=== PATIENT | female | born 1960 | race American Indian/Alaskan Native ===

== ENCOUNTER 2017-08-22 23:56 | Emergency (ER) | payer BC ==
[2017-08-22 23:56] VITALS: BMI 29.6
[2017-08-23 00:09] VITALS: O2SAT 98
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
--- NOTE | 2017-08-23 01:12 | CT ---
EXAM: CT Head Without Intravenous Contrast CLINICAL HISTORY: 57 years old, female; Pain; Headache; Additional info: Injury TECHNIQUE: Axial computed tomography images of the head/brain without intravenous contrast. All CT scans at this facility use one or more dose reduction techniques, viz.: automated exposure control; ma/kV adjustment per patient size (including targeted exams where dose is matched to indication; i.e. head); or iterative reconstruction technique. Coronal and sagittal reformatted images were created and reviewed. COMPARISON: No relevant prior studies available. FINDINGS: Brain: Minimal atrophy. No intracranial hemorrhage. No mass. No edema. Ventricles: No hydrocephalus. Bones/joints: No acute fracture. Soft tissues: Small parotid calcification. LEFT parietal soft tissue swelling. Sinuses: No acute sinusitis. Mastoid air cells: No mastoid effusion. Orbits: Unremarkable as visualized. IMPRESSION: 1. No intracranial hemorrhage. 2. Incidental/non-acute findings are described above.
--- NOTE | 2017-08-23 01:15 | CT ---
EXAM: CT Cervical Spine Without Intravenous Contrast CLINICAL HISTORY: 57 years old, female; Pain; Neck pain; Additional info: Injury TECHNIQUE: Axial computed tomography images of the cervical spine without intravenous contrast. All CT scans at this facility use one or more dose reduction techniques, viz.: automated exposure control; ma/kV adjustment per patient size (including targeted exams where dose is matched to indication; i.e. head); or iterative reconstruction technique. Coronal and sagittal reformatted images were created and reviewed. COMPARISON: No relevant prior studies available. FINDINGS: Vertebrae: No acute fracture. Mild facet osteoarthrosis. Discs/spinal canal/neural foramina: Early degenerative disc disease within mid cervical spine. Severe degenerative disc disease within lower cervical spine. Mild indentation thecal sac/cord lower cervical spine. Neuroforaminal narrowing within lower cervical spine. Soft tissues: Unremarkable. Sinuses: Minimal mucosal thickening of right maxillary sinus. Submandibular/parotid glands: Small parotid calcification. Lung apices: Early emphysematous changes. IMPRESSION: 1. No fracture. 2. Incidental/non-acute findings are described above.
[2017-08-23 01:29] VITALS: BP 161/80; PULSE 82; RESP 20; TEMP 98.4
== END 2017-08-23 01:29 | disposition home or self-care (01) ==
LOC: C.ER 23:56
DX: S00.93XA Contusion of unspecified part of head, initial encounter (principal); S16.1XXA Strain of muscle, fascia and tendon at neck level, initial encounter; Y08.89XA Assault by other specified means, initial encounter

== ENCOUNTER 2018-09-14 12:13 | Emergency (ER) | payer BC ==
[2018-09-14 12:13] VITALS: BMI 29.6
[2018-09-14 12:37] VITALS: BP 151/78; PULSE 63; RESP 18; TEMP 99.1; O2SAT 99
[2018-09-14] MEDS ORDERED: Amoxicillin-Clav 875-125 mg Tab PO STA (13:38)
[2018-09-14] MEDS ORDERED: Amoxicillin-Clav 875-125 mg Tab PO ONE (13:49)
--- NOTE | 2018-09-14 14:01 | C.PDOC ---
History Of Present Illness 58 y/o female with a PMHx of diabetes presents to the ED complaining of pain to her right thumb for 4 days. States she initially noticed pain underneath her acrylic nails which has progressively worsened. She had them removed two days ago. Patient then noticed a [id number] spot on her right thumb nail. States the spot is growing in size, and the tip of her finger is increasingly painful, rated 6/10 pain. Patient has not taken any medication for pain control. Notes she has had previous infections in the past, requiring I&D. Otherwise she denies any fever, chills, nausea, vomiting, rash, or trauma. Time Seen by Provider: 09/14/18 13:31 Chief Complaint (Nursing): Finger,Hand,&Wrist History Per: Patient History/Exam Limitations: no limitations Onset/Duration Of Symptoms: Days Current Symptoms Are (Timing): Still Present Severity: Moderate Pain Scale Rating Of: 6 Past Medical History Reviewed: Historical Data, Nursing Documentation, Vital Signs Vital Signs: Last Vital Signs Temp 99.1 F 09/14/18 12:33 Pulse 63 09/14/18 12:33 Resp 18 09/14/18 12:33 BP 151/78 H 09/14/18 12:33 Pulse Ox 99 09/14/18 12:33 - Medical History PMH: Diabetes, HTN, Hypercholesterolemia - [facility] Procedures PERCUTAN NEEDLE BIOPSY OF BREAST (11/09/13) Family History: States: Unknown Family Hx - Social History Hx Tobacco Use: No Hx Alcohol Use: No Hx Substance Use: No - Immunization History Hx Tetanus Toxoid Vaccination: No Hx Influenza Vaccination: No Hx Pneumococcal Vaccination: No Review Of Systems Constitutional: Negative for: Fever, Chills Gastrointestinal: Negative for: Nausea, Vomiting Musculoskeletal: Positive for: Hand Pain (right 1st digit) Skin: Negative for: Rash, Other (discharge) Neurological: Negative for: Weakness, Numbness Physical Exam - Physical Exam Appears: Non-toxic, No Acute Distress Skin: Warm, Dry Head: Atraumatic, Normacephalic Eye(s): bilateral: Normal Inspection Neck: Normal ROM Chest: Symmetrical Respiratory: No Accessory Muscle Use, Other (No respiratory distress) Extremity: Tenderness (to palpation at distal right 1st digit and nail), No Deformity, No Swelling, Other (White-enio green-enio pigment to medial nail of right 1st digit; slight erythema surrounding, but no erythema at the nailbed, no evidence of pus, no fluctuance) Pulses: Left Radial: Normal, Right Radial: Normal Neurological/Psych: Oriented x3 ED Course And Treatment O2 Sat by Pulse Oximetry: 99 (RA) Pulse Ox Interpretation: Normal Medical Decision Making Medical Decision Making: Finger stick is 229. Impression: Paronychia Initial Plan: - 650 mg PO Tylenol - 1 tab PO Augmentin Patient also seen and evaluated by ED attending Dr. Low, who agrees with plan to treat patient with Augmentin outpatient. No fluctuance on exam. I&D not indicated at this time. Patient advised to follow up with PMD for possible fungal therapy if necessary and to monitor LFTs if indicated. Patient verbalized understanding and is in agreement. Disposition Counseled Patient/Family Regarding: Diagnosis, Need For Followup, Rx Given - Disposition Referrals: Berna Espinal MD [Staff Provider] - Disposition: HOME/ ROUTINE Disposition Time: 14:02 Condition: IMPROVED Additional Instructions: JESUS HERNANDEZ, thank you for letting us take care of you today. Your provider was Jimi Low MD/Kraig Reeder PA-C and you were treated for FINGER PAIN. The emergency medical care you received today was directed at your acute symptoms. If you were prescribed any medication, please fill it and take as directed. It may take several days for your symptoms to resolve. Return to the Emergency Department if your symptoms worsen, do not improve, or if you have any other problems. Please contact your doctor or call one of the Dermatology physicians/clinics you have been referred to that are listed on the Patient Visit Information form that is included in your discharge packet. Bring any paperwork you were given at discharge with you along with any medications you are taking to your follow up visit. Our treatment cannot replace ongoing medical care by a primary care provider outside of the emergency department. Thank you for allowing the [facility] team to be part of your care today. 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 - Scribe Statement The provider has reviewed the documentation as recorded by the Scribe Autumn Diaz All medical record entries made by the Jovana were at my direction and personally dictated by me. I have reviewed the chart and agree that the record accurately reflects my personal performance of the history, physical exam, medical decision making, and the department course for this patient. I have also personally directed, reviewed, and agree with the discharge instructions and disposition.
== END 2018-09-14 14:24 | disposition home or self-care (01) ==
LOC: C.ER 12:13
DX: L03.011 Cellulitis of right finger (principal)

== ENCOUNTER 2018-11-21 10:21 | Outpatient (CLI) | payer BC | END 2018-11-21 10:22 | disposition home or self-care (01) | LOC: C.VASC 10:21 ==

== ENCOUNTER 2018-12-14 06:49 | Emergency (ER) | payer BC ==
[2018-12-14 06:50] VITALS: BMI 29.6
[2018-12-14 06:57] VITALS: O2SAT 98
[2018-12-14] MEDS ORDERED: Sodium Chloride 0.9% 1,000 ML IV ONE (07:36)
[2018-12-14] MEDS ORDERED: Sodium Chloride 0.9% 1,000 ML ONE (07:44)
--- NOTE | 2018-12-14 07:59 | C.PDOC ---
History Of Present Illness 58 y/o female, brought to the ER by ambulance, complaining of headache, dizziness and nausea which began when patient was at work last night. Patient states that her co-workers called for an ambulance. Patient reports that she usually works during the night. Denies having fever,chills,CP,SOB, nausea, and vomiting. Patient has history of diabetes, neuropathy, and ulcerative colitis. Chief Complaint (Nursing): Headache History Per: Patient History/Exam Limitations: no limitations Onset/Duration Of Symptoms: Hrs Current Symptoms Are (Timing): Still Present Associated Symptoms Preceding Syncopal Episode: Lightheadedness, Vertigo Seizure Or Post-ictal Symptoms: None Fall Associated With With Symptoms: No Severity: Moderate Past Medical History Reviewed: Historical Data, Nursing Documentation, Vital Signs Vital Signs: Last Vital Signs Temp 98.5 F 12/14/18 06:54 Pulse 82 12/14/18 06:54 Resp 16 12/14/18 06:54 BP 186/79 H 12/14/18 06:54 Pulse Ox 98 12/14/18 06:54 Primary Care Provider: Berna Espinal - Medical History PMH: Diabetes, HTN, Hypercholesterolemia Surgical History: No Surg Hx - [facility] Procedures PERCUTAN NEEDLE BIOPSY OF BREAST (11/09/13) Family History: States: No Known Family Hx - Social History Hx Tobacco Use: No Hx Alcohol Use: No Hx Substance Use: No - Immunization History Hx Tetanus Toxoid Vaccination: No Hx Influenza Vaccination: No Hx Pneumococcal Vaccination: No Review Of Systems Except As Marked, All Systems Reviewed And Found Negative. Constitutional: Negative for: Fever, Chills Cardiovascular: Negative for: Chest Pain Respiratory: Negative for: Shortness of Breath Gastrointestinal: Positive for: Nausea. Negative for: Vomiting, Abdominal Pain Neurological: Positive for: Dizziness Physical Exam - Physical Exam Appears: Non-toxic, No Acute Distress Skin: Normal Color, Warm, Dry Head: Atraumatic, Normacephalic Eye(s): bilateral: Normal Inspection, PERRL, EOMI Nose: Normal Oral Mucosa: Moist Neck: Normal ROM, Supple Chest: Symmetrical Cardiovascular: Rhythm Regular Respiratory: Normal Breath Sounds, No Rales, No Rhonchi, No Wheezing Gastrointestinal/Abdominal: Normal Exam, Soft, No Tenderness Extremity: Normal ROM Neurological/Psych: Oriented x3, Normal Speech, Normal Motor, Normal Sensation Gait: Steady ED Course And Treatment - Laboratory Results Result Diagrams: 12/14/18 08:13 Lab Interpretation: Normal ECG: Interpreted By Me ECG Rhythm: Sinus Rhythm ECG Interpretation: No Acute Changes Rate From EC O2 Sat by Pulse Oximetry: 98 (RA) Pulse Ox Interpretation: Normal - CT Scan/US No standard instances Other Rad Studies (CT/US): Read By Radiologist, Radiology Report Reviewed CT/US Interpretation: FINDINGS: HEMORRHAGE: No intracranial hemorrhage. BRAIN: No mass effect or edema. No atrophy or chronic microvascular ischemic changes. VENTRICLES: Unremarkable. No hydrocephalus. CALVARIUM: Unremarkable. PARANASAL SINUSES: Unremarkable as visualized. No significant inflammatory changes. MASTOID AIR CELLS: Unremarkable as visualized. No inflammatory changes. OTHER FINDINGS: None. IMPRESSION: Normal CT of the Head. No intracranial mass, hemorrhage or evidence of acute infarct. Progress Note: Labs,UA, and CT-Head ordered.Patient treated with IV Fluids,Reglan IV, and Meclizine PO. Reassessment Condition: Improved Disposition Counseled Patient/Family Regarding: Studies Performed, Diagnosis, Need For Followup, Rx Given - Disposition Referrals: Berna Espinal MD [Staff Provider] - Disposition: HOME/ ROUTINE Disposition Time: 09:20 Condition: STABLE Additional Instructions: Follow up with your PMD for further evaluation Return to ED if any increase symptoms Prescriptions: Meclizine [Meclizine*] 25 mg PO Q12 PRN #10 tab PRN Reason: Dizziness Instructions: Vertigo (a Type of Dizziness) Forms: [facility] (Gabonese) - POA Present On Arrival: None - Clinical Impression Clinical Impression: Dizziness - 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 - Scribe Statement The provider has reviewed the documentation as recorded by the Jovana Gandhi Provider Attestation All medical record entries made by the Kadenibe were at my direction and personally dictated by me. I have reviewed the chart and agree that the record accurately reflects my personal performance of the history, physical exam, medical decision making, and the department course for this patient. I have also personally directed, reviewed, and agree with the discharge instructions and disposition.
[2018-12-14 08:21] LABS: SQUAMOUS EPITHIAL 1 /hpf (0-5); URINE BACTERIA RARE (<OCC); URINE BILIRUBIN NEGATIVE (NEGATIVE); URINE BLOOD NEGATIVE (NEGATIVE); URINE CLARITY Clear (Clear); URINE COLOR Yellow (YELLOW); URINE GLUCOSE (UA) NORMAL (Normal); URINE LEUKOCYTE ESTERASE NEG Leu/uL (Negative); URINE PROTEIN NEGATIVE (NEGATIVE); URINE UROBILINOGEN NORMAL mg/dL (0.2-1.0)
[2018-12-14 08:28] LABS: ALB/GLOB RATIO 1.1 (1.0-2.1); ALBUMIN 4.7 g/dL (3.5-5.0); ALT/SGPT 26 U/L (9-52); AST/SGOT 35 U/L (14-36); BLOOD UREA NITROGEN 17 mg/dL (7-17); CALCIUM 9.9 mg/dl (8.6-10.4); GFR NON-AFRICAN AMERICAN > 60
--- NOTE | 2018-12-14 08:53 | CT ---
Date of service: 12/14/2018 PROCEDURE: CT HEAD WITHOUT CONTRAST. HISTORY: R/O Bleed COMPARISON: 08/23/2017 TECHNIQUE: Axial computed tomography images were obtained through the head/brain without intravenous contrast. Radiation dose: Total exam DLP = 992.38 mGy-cm. This CT exam was performed using one or more of the following dose reduction techniques: Automated exposure control, adjustment of the mA and/or kV according to patient size, and/or use of iterative reconstruction technique. FINDINGS: HEMORRHAGE: No intracranial hemorrhage. BRAIN: No mass effect or edema. No atrophy or chronic microvascular ischemic changes. VENTRICLES: Unremarkable. No hydrocephalus. CALVARIUM: Unremarkable. PARANASAL SINUSES: Unremarkable as visualized. No significant inflammatory changes. MASTOID AIR CELLS: Unremarkable as visualized. No inflammatory changes. OTHER FINDINGS: None. IMPRESSION: Normal CT of the Head. No intracranial mass, hemorrhage or evidence of acute infarct.
[2018-12-14 09:27] VITALS: BP 159/84; PULSE 84; RESP 20; TEMP 98.6
--- NOTE | 2018-12-15 12:16 | CARD ---
APPROVED REPORT Date of service: 12/14/2018 EKG Measurement Heart [id number] CT [id number] <Conclusion> Normal sinus rhythm Normal ECG
== END 2018-12-14 09:52 | disposition home or self-care (01) ==
LOC: C.ER 06:49
DX: R42 Dizziness and giddiness (principal)
CPT/HCPCS: 70450; 80053; 81001; 82948; 93005; 96361; 96374; 99285; J2765; J7030